=== PATIENT | female | born 1980 ===

== ENCOUNTER 2024-11-26 06:30 | Inpatient (IN) | payer OTHER, SELFPAY ==
[2024-11-26] VITALS (13 sets, daily range): BP systolic 106–153; BP diastolic 56–101; BMI 27.8
[2024-11-26 01:07] LABS: % Basophils 0.8 % (0-2); % Eosinophils 0.9 % (0-6); % Immature Granulocytes 1.7 % (0-0.5); % Lymphocytes 17.8 % (20.5-51.1); % Monocytes 8.7 % (1.7-9.3); % Neutrophils 70.1 % (42.2-75.2); Absolute Basophils 0.1 10^3/uL (0-0.2); Absolute Eosinophils 0.1 10^3/uL (0-0.7); Absolute Immature Granulocytes 0.2 10^3/uL (0-0.05); Absolute Lymphocytes 2.1 10^3/uL (1.2-3.4); Absolute Neutrophils 8.2 10^3/uL (1.4-6.5); Hematocrit 37.2 % (37.0-47.0); Hemoglobin 11.8 g/dL (12.0-16.0); Mean Corp Hgb Conc. 31.7 g/dL (33.0-37.0); Mean Corpuscular Hgb 23.8 pg (27.0-31.0); Nucleated Red Blood Cells % 0 %; Platelet Count 298 10^3/uL (130-400); Red Blood Cell Count 4.96 10^6/uL (4.20-5.40); Red Cell Dist. Width 14.6 % (11.5-14.5); White Blood Cell Count 11.7 10^3/uL (4.8-10.8)
[2024-11-26 01:15] LABS: ALT (SGPT) 17 U/L (0-35); AST (SGOT) 18 U/L (14-36); Albumin 4.1 g/dl (3.5-5.0); Alkaline Phosphatase 77 U/L (38-126); Blood Urea Nitrogen 16 mg/dl (7-17); Calcium 9.4 mg/dl (8.4-10.2); Carbon Dioxide 25 mmol/L (22-30); Chloride 107 mmol/L (98-107); Glucose 109 mg/dl (70-99); Lipase 517 U/L (23-300); Potassium 4.2 mmol/L (3.5-5.1); Sodium 141 mmol/L (135-145); Total Bilirubin 0.3 mg/dl (0.2-1.3); Total Protein 6.7 g/dl (6.3-8.2); eGFR > 60.00
--- NOTE | 2024-11-26 01:37 | ED.GENMED ---
History of Present Illness
General
Chief Complaint: Abdominal Pain
Source: patient
Exam Limitations: none
Time Seen by Provider: 11/26/24 01:18
History of Present Illness
History of Present Illness:
This is a 44 year old female that comes in with c/o upper abd pain. States that she had a little pain in the morning on Saturday and it was mild. States that tonight the pain when she laid down increased and she could not breath due to the pain.
States that the pain goes into her back. State that she has had nausea with a headache. Patient was at [facility] and they did an ECG and told her that this was normal and that she would have to wait. Patient states that they left and came
here. Denies any fever, chills, chest pain, vomiting, diarrhea, dizziness, urinary burning.
Past History
Past History
ED Past Medical History: Arrthythmia (Palpitations); Negative Asthma, HTN, Hypercholesterolemia or NIDDM
ED Past Surgical History: Gynecological (Tubal ligation)
Social History
Tobacco: Non-smoker
Alcohol: None
Drug: None
Personal:
Living: with family
Review of Systems
Review of Systems
All Other Systems: ROS reviewed and negative except as documented in HPI and ROS
Constitutional: Reports no symptoms; Denies fever or chills
EENT: Reports no symptoms
Respiratory: Reports trouble breathing (with pain only); Denies cough
Cardiac: Reports no symptoms; Denies chest pain
ABD/GI: Reports abdominal pain and nausea; Denies vomiting or diarrhea
: Reports no symptoms; Denies dysuria, frequency or urgency
Musculoskeletal: Reports no symptoms
Skin: Reports no symptoms
Neurological: Reports headache; Denies dizzy
Psychiatric: Reports no symptoms
Phy Exam
General Physical Exam
General Presentation: mild distress
General age: appears stated age
General Skin: warm and dry
General Habitus: normal
General Mental: alert
General Hydration: appears well hydrated
ENT Exam
ENT Exam: TM's normal, pharynx normal and neck supple
Eye Exam
Eye Exam: EOMI
Cardiovascular Exam
Cardiovascular Exam: regular rate/rhythm, no edema, no murmur and normal peripheral pulses
Pulmonary Exam
Pulmonary Exam: lungs clear, no respiratory distress, no rales, chest non tender, no crackles, no rhonchi, no wheezing and no cough
Gastrointestinal Exam
Gastrointestinal Exam: normal bowel sounds, soft, no organomegaly, no pulsatile mass, non distended and tender (epigastric and right upper abd tenderness with palpation)
Musculoskeletal Exam
Musculoskeletal Exam: full ROM and no edema
Skin Exam
Skin Exam: normal color, warm/dry, no rash and no petechia
Psychiatric Exam
Psychiatric Exam: normal mood/affect
Course
Orders/Labs/Results
Orders:
Orders
11/26/24 00:47
Complete Blood Count/With Diff Urgent
Comprehensive Metabolic Panel Urgent
Ferritin Urgent
Comment: ADD ON
HCG, Serum Qualitative Screen Urgent
Iron Urgent
Comment: ADD ON
Lipase Urgent
Total Iron Binding Urgent
Comment: ADD ON
11/26/24 01:36
CT Abd/pelvis W Iv Cont Urgent
Comment:
Reason For Exam: Upper abd pain
0.9% Sodium Chloride 1000 ml [Nss] 1,000 ml IV BOLUS
HYDROmorphone [Dilaudid] 1 mg IV NOW STA
Ondansetron Injectable [Zofran] 4 mg IV NOW STA
US Abdomen Limited Urgent
Comment:
Reason For Exam: Upper abd pain
11/26/24 01:40
Add On- LAB Urgent
Tests Added?: hcg qualitative
11/26/24 02:02
Urinalysis Reflex To Culture Urgent
Date Specimen was Collected: 11/26/24
Time Specimen was Collected: 01:56
Urine Microscopic Reflex Cult Urgent
Urine Culture Urgent
JOANIE Source: U
Specimen Description:
Date Specimen was Collected: 11/26/24
Time Specimen was Collected: 01:56
11/26/24 03:10
US Legs, Bilateral [US Periph Venous LOWER Ext Adryan] Urgent
Comment:
Reason For Exam: Possible PE
11/26/24 03:59
D-Dimer Urgent
Comment: ADD ON
PTT Urgent
Prothrombin Time Urgent
Troponin I Urgent
11/26/24 04:30
HYDROmorphone [Dilaudid] 0.5 mg IV NOW STA
11/26/24 04:31
Heparin 5,700 units IV NOW STA
Heparin Protocol- PTT Orders As Directed
PTT per Heparin protocol: -Obtain CBC and baseline PTT - if not already collected.
-Obtain PTT 6 hours from start of infusion. Then, every 6 hours until 2 consecutive
PTT's are therapeutic. Then, PTT Daily.
-With each rate change, obtain PTT every 6 hours until 2 consecutive PTT's are
therapeutic. Then, PTT Daily.
Notify MD As Directed
Notify physician if: PTT is greater than or equal to 200.
11/26/24 04:33
Admit/Transfer Patient As Directed
Co-Sign Provider:
Level of Care: Inpatient admission
Assign to:: Telemetry
Physician / Group: hospitalist
Diagnosis: Pulmonary embolism, pancreatitis
Reason for Telemetry: Other
Other Reason for Telemetry: pulmonary embolism
Date to Stop Telemetry: 11/28/24
Time to Stop Telemetry: 11:00
Reason for Hospitalization: pulmonary embolism
Expected length of stay greater than two midnights?: Yes
ELOS- Estimated Length of Stay in days: 2
I certify the patient meets the requirements for IP care: Yes
PRN Pain Medication Management As Directed
May give lesser potent ordered pain med per pt: Yes
preference::
Protocol:: Medication orders for pain may be administered in a
manner that supports deferring to patient preference
when the pt is:
- Requesting an ordered lesser potent pain medication.
Least to most potent pain medications are defined
as: acetaminophen < NSAID < tramadol < opioids
(morphine, oxycodone, hydromorphone).
- Requesting a lesser dose of the same medication IF
ORDERED.
- Requesting a less intrusive route of administration
if both routes are prescribed by the provider (PO <
IV).
11/26/24 04:34
Code Status As Directed
Resuscitation Status: Full Code
11/26/24 04:45
Heparin 02787 Units/250 ml 25,000 units in 250 ml IV PER PROTOCOL
Weight to be used for heparin protocol in kilograms (kg):: 71.2
Protocol:: DVT/PE
PTT Goal Range to be used:: PTT 73 to 111 seconds
Order type:: Initial
INITIAL Infusion Dose (UNITS/KG/hr) & then follow protocol:: 18 units/kg/hr
Infusion Dose in UNITS/hr & then follow protocol (UNITS/hr):: 1,300
INFUSION RATE in mL/hr & then follow protocol (mL/hr):: 13
For DVT/PE algorithm, re-bolus for low PTT?: Yes
PTT less than or equal to 64 seconds:: Re-bolus 80 units/kg (max 10,000units). Increase by 300 units/hr
(+ 3mL/hr)
PTT 64.1 to 72.9 seconds:: Re-bolus 40 units/kg (max 5,000 units). Increase by 100 units/hr
(+ 1mL/hr)
PTT 73 to 111 seconds:: Target Range. No change in rate.
PTT 111.1 to 130.9 seconds:: Decrease rate by 100 units/hr (- 1 mL/hr)
PTT 131 to 199.9 seconds:: HOLD for 1 hr. Then decrease by 200 units/hr (- 2mL/hr)
PTT greater than or equal to 200 seconds:: HOLD for 2 hrs & Notify Provider. Then decrease by 300 units/hr
(- 3mL/hr)
Lab follow-up:: Each change, PTT q6h until 2 consecutive are therapeutic. Then
PTT daily.
11/26/24 05:16
Heparin 5,700 units IV Q6HPRN PRN
11/26/24 05:17
Heparin 2,800 units IV Q6HPRN PRN
11/26/24 Breakfast
Clear Liquid
At Your Request: Full Participation
11/26/24 06:50
Acetaminophen [Tylenol] 650 mg PO Q4HPRN PRN
HYDROmorphone [Dilaudid] 0.5 mg IV Q4HPRN PRN
Lactated Ringers [Lr] 1,000 ml IV 125 mls/hr
Morphine Sulfate 2 mg IV Q4HPRN PRN
Polyethylene Glycol Powder [Miralax] 17 grams PO DAILY PRN
11/26/24 06:50
Echo 2D MMode Color/Doppler Routine
Reason for Study: pulmonary embolism
Consult Notification Routine
Specialty to Notify: Gastroenterology
Consult Notification Routine
Specialty to Notify: Hematology
GASTROINTESTINAL CONSULT Routine
Consulting Provider: Mercedes Jordan
Was physician already notified: No
Reason for consult: acute pancreatitis w/o common risks/findings
HEMATOLOGY CONSULT Routine
Consulting Provider: Jose Maria Ansari
Was physician already notified: No
Reason for consult: unprovoked PE
Activity As Directed
Activity Level: With Assistance
Bladder Scan As Directed
Follow Bladder Retention/Intermittent Cath Algorithm?: Yes
Frequency: Per Retention Algorithm
Comment: as per intermittent urinary catheter algorithm
Intake/ Output As Directed
Frequency: Per unit guidelines
Vital Signs As Directed
Frequency: Per unit guidelines
Pulse Ox/cont/shift [RESP] Routine
Quantity: 1
Special Instructions: check O2 Sat Q8 hours and at each change in oxygen liter flow and FiO2
11/26/24 08:00
Docusate Sodium [Colace] 100 mg PO BID
Pantoprazole [Protonix] 40 mg PO DAILY
11/26/24 11:42
PTT Urgent
11/27/24 06:00
Glycohemoglobin (HgbA1c) IN AM
Triglycerides IN AM
11/28/24 06:00
Complete Blood Count/No Diff Q2D
Comment: Notify MD if platelet count is <130,000 or decreases by 50% from baseline
11/28/24 11:00
DC Protocol for Telemetry ONCE
11/30/24 06:00
Complete Blood Count/No Diff Q2D
Comment: Notify MD if platelet count is <130,000 or decreases by 50% from baseline
12/02/24 06:00
Complete Blood Count/No Diff Q2D
Comment: Notify MD if platelet count is <130,000 or decreases by 50% from baseline
12/04/24 06:00
Complete Blood Count/No Diff Q2D
Comment: Notify MD if platelet count is <130,000 or decreases by 50% from baseline
12/06/24 06:00
Complete Blood Count/No Diff Q2D
Comment: Notify MD if platelet count is <130,000 or decreases by 50% from baseline
12/08/24 06:00
Complete Blood Count/No Diff Q2D
Comment: Notify MD if platelet count is <130,000 or decreases by 50% from baseline
12/10/24 06:00
Complete Blood Count/No Diff Q2D
Comment: Notify MD if platelet count is <130,000 or decreases by 50% from baseline
12/12/24 06:00
Complete Blood Count/No Diff Q2D
Comment: Notify if platelet count is <130,000 or decreases by 50% from baseline
Abnormal Lab Results
11/26/24 11/26/24 11/26/24
00:47 02:02 03:59
WBC 11.7 H 10^3/uL
(4.8-10.8)
Hgb 11.8 L g/dL
(12.0-16.0)
MCV 75.0 L fL
(81.0-99.0)
MCH 23.8 L pg
(27.0-31.0)
MCHC 31.7 L g/dL
(33.0-37.0)
RDW 14.6 H %
(11.5-14.5)
Abs Immat Gran (auto) 0.2 H 10^3/uL
(0-0.05)
Absolute Neuts (auto) 8.2 H 10^3/uL
(1.4-6.5)
Absolute Monos (auto) 1.0 H 10^3/uL
(0.1-0.6)
Immature Gran % 1.7 H %
(0-0.5)
Lymphocytes % 17.8 L %
(20.5-51.1)
D-Dimer 1.08 H ug/mlFEU
(0.00-0.50)
Glucose 109 H mg/dl
(70-99)
% Saturation 15 L %
(20-50)
Lipase 517 H U/L
(23-300)
Leukocyte Esterase Rfl Trace A
(Negative)
Urine Bacteria (Reflex) Moderate A
(Negative)
11/26/24 00:47
11/26/24 00:47
Leukocytosis, Hgb slightly low. Anemia, Glucose nonfasting. Lipase elevation (early pancreatitis), Urine negative for infection. HCG negative.
Vital Signs
Initial and Last Documented VS:
Initial Vital Signs
Pulse Resp BP Pulse Ox
112 18 153/101 97
11/26/24 00:20 11/26/24 00:20 11/26/24 00:20 11/26/24 00:20
Last Documented Vital Signs
Temp Pulse Resp BP Pulse Ox
98.4 F 103 20 125/83 96
11/26/24 23:05 11/26/24 23:05 11/26/24 23:05 11/26/24 23:05 11/26/24 23:05
MDM/Problems Addressed
Differential Diagnosis Includes:
Pancreatitis, gallbladder disease
MDM/Problems Addressed:
This is a 44 year old female that comes in with c/o upper abd pain. States that she has some discomfort on Saturday morning. Tonight the pain is worse and that she can't lay down as the pain increased. States that the pain maker her SOB.
Will check labs, Limited Ultrasound and get CT of abd/pelvis. Will give IV fluids and medicate for pain.
Back into see patient. Explained that her CT shows that she may have a right lower lobe Pulmonary embolism. Patient appears to only have on kidney on the left. Spoke with the Hospitalist and will be Ultrasound of the lower legs and he will base his
decision on a blood thinner according to this. Will admit.
Chronic conditions affecting care:
NA
Acute Exacerbation and/or Progression of Chronic Illness:
NA
*Radiology
Radiology exam reviewed: radiology read reviewed (CT night hawk- Possible embolus right lower lobe, Incompletely seen on last image slices. Please clinically correlate with clinical suspicious and consider CTA chest appropriate) and other (Bilateral
ultrasound negative for DVT)
*Pulse Oximetry
Patient hypoxic: no
*EKG
Interpreted by ED Provider?: NA
Rate: EKG- N/A
*Abrasive Mixer Interpretation
Rate: Abrasive Mixer- N/A
*Critical Care Note
Total Time (30-74mins, 75-104mins- exclusive of procedures): Not Applicable
ED Attending Note
-
Portions of this chart may have been created with voice recognition software.� Occasional wrong word or��sound alike� substitutions may have occurred due to the inherent limitations of voice recognition software.
Discharge Plan
Departure
Patient Disposition: Admit
Date of Disposition: 11/26/24
Time of Disposition: 03:28
Admit to: Telemetry
Presentation/result/management discussed w/ accepting MD/DO: Hospitalist
Patient with high blood pressure during this ER visit?: No
Condition: Good
Covid-19: Not Applicable
Discharge Problem:
Early pancreatitis, Possible right lower lobe PE
Interventions
Interventions:
*Risk Screen - Suicide Last Done: 11/26/24 00:20
*General Assessment Last Done: 11/26/24 01:51
*Neglect/Abuse Screening Last Done: 11/26/24 01:51
ED- Fall Risk Assessment Last Done: 11/26/24 09:26
*ED COVID-19 Vaccine History Last Done: 11/26/24 01:51
*Nursing Disposition Last Done: 11/26/24 14:05
NF-Rohkef-Fccjqvkucu Assessment Last Done: 11/26/24 09:26
Discharge Date and Time
Discharge Date/Time: 11/26/24 14:05
[2024-11-26] MEDS: DILAUDID 1 MG IV (01:57)
[2024-11-26] MEDS: NSS 1000 IV (01:57)
[2024-11-26] MEDS: ZOFRAN 4 MG IV (01:57)
[2024-11-26 02:14] LABS: HCG, Serum Qualitative Screen Negative
[2024-11-26 02:14] LABS: Urine Albumin Negative (Neg - Trace); Urine Bilirubin Negative (Negative); Urine Character Clear (Clear); Urine Color Yellow; Urine Glucose Negative (Negative); Urine Ketone Negative (Negative); Urine Leukocyte Trace (Negative); Urine Nitrite Negative (Negative); Urine Occult Blood Negative (Negative); Urine Specific Gravity 1.015 (<1.030); Urine Urobilinogen Negative (Neg - 1+)
[2024-11-26 02:32] LABS: Urine Bacteria Moderate (Negative); Urine Red Blood Cell 0-2 /HPF (0-2); Urine Squamous Cell 26-30 /LPF (Few); Urine White Cell 0-2 /HPF (0-5)
--- NOTE | 2024-11-26 04:11 | HPS.HSE ---
Family Physician
-
Family Physician: Shaun Johnson
Chief Complaint
-
Right-sided flank and back pain as well as epigastric pain.
History of Present Illness
This is a 44-year-old female with a past medical history of intermittent episodes of PVCs on as needed metoprolol presents to the emergency department with episode of abdominal pain that started about 2 days ago.
In particular the patient reported that she initially had pain that felt musculoskeletal on the right flank and subcostal area. She tolerated this for a while. However she awoke today with more severe pain that was radiating to the epigastric
region. She had mild nausea that she associates with mild migraine headache. She denies any vomiting. She denies having any diarrhea. She reported that when she is standing the pain feels more epigastric. When she is laying down the pain feels
flank and radiates to right neck and shoulder. Pain is worse with inspiration. She denies having any shortness of breath. She denies any cough. Patient denies any recent travels such as plane flight or a prolonged drive. She reported that she
did have a 2-hour drive to and from [place] recently. She denies any lower extremity swelling. She denies family history of clotting disorders. She does report a mother who reportedly passed from a cardiac episode in her 30s. Father with
history of lung cancer but was a smoker. Patient denies alcohol use. She denies any history of gallstones. Denies any urinary symptoms.
In the emergency department she was afebrile, blood pressure was 120/67 with a pulse of 88. She was at 98% on room air. CBC was unremarkable. Electrolytes BUN/creatinine were normal. LFTs were completely normal. Lipase was elevated at 517.
In the right upper quadrant ultrasound shows no sonographic evidence of cholelithiasis or acute cholecystitis. The common bile duct measures [address] of the abdomen pelvis with IV contrast showing possible pulmonary embolus in the right lower
lobe. There was a normal gallbladder and no other acute findings. Congenitally absent right kidney. Lower extremity Dopplers were negative for DVT.
Medical History
Past Medical History
Past Medical History: Reports Other (PVCs)
Past Surgical History: Reports Gynocological (tubal ligation)
Social History
Tobacco: Non-smoker
Alcohol: None
Drug: None
Personal:
Living: With Family
Employment: Employed
Family History
Family History: Not pertinent
Allergies / Home Medications
Allergies reflects when Allergies were last updated in [employer].
Home Medications with original date entered in [employer]
Allergy/Medication List:
Allergies
Allergy/AdvReac Type Severity Reaction Status Date / Time
No Known Allergies Allergy Unverified 11/26/24 00:19
Home Medications
albuterol sulfate 90 mcg/actuation aerosol inhaler 2 puff inhalation 6XD PRN sob 11/26/24
metoprolol succinate 25 mg tablet,extended release 24 hr 25 mg PO DAILY PRN heart rate 11/26/24
Review of Systems
-
Constitutional: Reports No Symptoms
EENT: Reports No Symptoms
Respiratory: Reports No Symptoms
Abdomen/GI: Reports Abdominal Pain
: Reports No Symptoms
Musculoskeletal: Reports No Symptoms
Skin: Reports No Symptoms
Neurological: Reports No Symptoms
Endocrine: Reports No Symptoms
Hematologic/Lymphatic: Reports No Symptoms
Psych: Reports No Symptoms
Physical Exam
Vital Signs
Vital Signs
Pulse Resp BP Pulse Ox
88 16 119/63 98
11/26/24 02:56 11/26/24 02:56 11/26/24 02:56 11/26/24 02:56
Physical Exam
General: Well Developed, Well Nourished, Conversant and Appears in Distress
HEENT: NormoCephalic, Anicteric, Moist mucous membranes and Atraumatic
Respiratory: Clear
Cardiac: S1/S2 and Regular Rhythm
Breast: Deferred by me
GI: Soft, Non Tender, Non Distended and Normal Bowel Sounds
Rectal: Deferred by Provider
Genito-urinary: Deferred by me
Musculoskeletal: No Clubbing, No Cyanosis and No Edema
Skin: Warm
Neuro: AO x 3 and Nonfocal/grossly intact
Hematologic/Lymphatic: No Lymphadenopathy
Psych: Calm
Laboratory Results
-
11/26/24 00:47
11/26/24 00:47
Laboratory Results
Total Bilirubin 0.3 mg/dl (0.2-1.3) 11/26/24 00:47
AST 18 U/L (14-36) 11/26/24 00:47
ALT 17 U/L (0-35) 11/26/24 00:47
Alkaline Phosphatase 77 U/L (38-126) 11/26/24 00:47
Lipase 517 U/L (23-300) H 11/26/24 00:47
Data Reviewed
-
CT Scan: Report Reviewed by me
Ultrasound: Report Reviewed by me
Lab Data: Labs Reviewed by me
Old Records: Reviewed
Impression/Plan
-
IMPRESSION:
Generally healthy 44-year-old who presents with right-sided pain and some epigastric pain that is worse with inspiration. Found to have incidental pancreatitis with elevated lipase. CT of the abdomen pelvis and right upper quadrant ultrasound was
negative for gallstones, acute cholecystitis or ductal dilation. The pancreas showed no acute abnormality. Incidental finding of absence of right kidney. There was also a finding of a possible right lower lobe pulmonary embolus. The lower
extremity ultrasound is negative.
PLAN:
Possible PE - Pleuritic chest pain and abdominal pain with incidental finding of PE on CT/AP. No DVT on u/s. HD stable. troponin pending. Likely non-massive pe but given recent contrast and single kidney cannot scan immediately.
- admit to telemetry
- follow troponin,
- IV fluids and obtain CT PE after IV fluids for JOVI PPX.
- for now will start heparin gtt pending repeat PE
- no provoking factors, no clear family hx. Has age appropriate cancer screening
- hematology consultation if CT PE confirms the PE
Pancreatitis - Epigastric pain c/w pancreatitis but the etiology is unclear, no stones, etoh, trauma or meds. Labs otherwise normal.
- clear liquid diet as tolerated
- pain control and antiemetics
- check triglycerides
- no obvious anatomic anomaly, ? sphincter of oddi
- gi consult
Code status - full code
[2024-11-26 04:37] LABS: INR 1.03
[2024-11-26 04:38] LABS: APTT 33.3 Sec (23.4-35.0)
[2024-11-26 05:02] LABS: Troponin I < 0.012 ng/ml
[2024-11-26] MEDS: DILAUDID 0.5 MG IV ×2 (05:15→19:27)
[2024-11-26] MEDS: HEPARIN 25000 UNITS/250 ML IV (05:20)
[2024-11-26] MEDS: HEPARIN 5700 UNITS IV (05:20)
--- NOTE | 2024-11-26 08:22 | CON.GI ---
Addendum entered and electronically signed by Mercedes Jordan MD 11/26/24 16:30:
I saw and examined the patient.
The Resident's note was reviewed and I agree with the note.
Comment: 44-year-old female with no significant past medical history presenting with acute epigastric/right upper quadrant sharp abdominal pain that woke her up from sleep, radiation to the right upper back and also to the right shoulder. No
previous similar episodes and no prior GI complaints. In the ER, mild leukocytosis, lipase slightly elevated at 517 with normal LFTs. Mild anemia with microcytic indices, as per patient this is chronic. Abdominal ultrasound did not show any
evidence of stones or sludge.CT scan of the abdomen and pelvis with IV contrast only showing questionable pulmonary embolus of the right lower lobe, no evidence of pancreatitis, gallbladder unremarkable as well. Moderate fecal material throughout
the colon.
On physical exam, tenderness in the right upper quadrant
-Epigastric/right upper quadrant abdominal pain radiating to the right upper back and right shoulder, clinically suggesting biliary source
No associated acid reflux symptoms, no regular NSAID use
No chronic abdominal pain either
Normal LFTs, mildly elevated lipase without any evidence of pancreatitis on CT scan.
Will add PPI for now. No indication for upper endoscopy at this time.
Might need surgical input.
-? PE on CT scan, getting further evaluation per medical team
At some point needs outpatient GI follow-up for colonoscopy as well.
Original Note:
Documented by User: Moo Green MD, Resident 11/26/24 13:54
Consultation
-
Date/Time Consultation Requested: 11/26/2024 06: 50
Date/Time Consultation Performed: 11/26/2024 09: 30
Requesting Provider: Romain Espinal MD
Performing Provider: Mercedes Jordan MD
Reason for Consultation: Acute pancreatitis w/o common risks/findings
Medical History
Chief Complaint / HPI
Chief Complaint: Epigastric abdominal pain
History of Present Illness:
44-year-old female with PMH of intermittent PVCs, who presented to ED on 11/26/2024 with epigastric pain radiating to the back. Patient reports that pain was initially on the RUQ that radiated to her right shoulder and right neck which she
tolerated until she started having an epigastric pain last night. Pain is rated 9/10, worse with deep breathing, and recumbent position. She did have nausea which she attributed to her migraine but no vomiting. She was evaluated at [facility] with an ECG and was told it was normal before presentation. 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 She does not remember being stung by an insect and does not
have any erythema on her skin. She denies any sick contacts, prolonged period of immobility, OCP use, history of gallstones, family history of blood clots, recent trauma, alcohol use, history of autoimmune disease, steroid use, history of
hypertriglyceridemia. The only medications she takes is metoprolol and albuterol inhaler. She does not take any NSAIDs regularly and does not take any OTC medications.
While in the ED, her vitals were stable with BP 120/67, pulse 88, per saturating at 98% on room air. Her LFTs were unremarkable, however she has an elevated lipase at 517. She is afebrile, her WBC counts is 11.7, Hb 11.8, MCV 75.0, platelets 298.
She denies chest pain, shortness of breath, diarrhea, constipation, or leg swelling.
Past Medical History
Past Medical History: Other (PVCs)
Past Surgical History: Gynecological (Tubal ligation)
Social History
Tobacco: Non-Smoker
Alcohol: None
Drug: None
Personal:
Living: With Family
Employment: Employed
Family History
Family History: Other (Father: Lung cancer (was a smoker), mother: Passed in her 30s with cardiac problem)
Allergies / Home Medications
Allergy/AdvReac Type Severity Reaction Status Date / Time
No Known Allergies Allergy Unverified 11/26/24 00:19
�Medication �Instructions �Recorded
albuterol sulfate 90 mcg/actuation 2 puff inhalation R Q6HPRN PRN sob 11/26/24
aerosol inhaler
metoprolol succinate 25 mg 25 mg PO DAILY PRN heart rate 11/26/24
tablet,extended release 24 hr
Review of Systems
-
All other systems: A 12 pt ROS was Negative except as stated above in HPI
Vital Signs
Pulse Resp BP Pulse Ox
95 12 122/61 98
11/26/24 05:24 11/26/24 05:24 11/26/24 05:24 11/26/24 02:56
Physical Exam
Exam
General: No Apparent Distress and Comfortable
Respiratory: Clear and Non Labored Respirations; Negative Wheezes or Rales
Cardiac: S1/S2 and Regular Rhythm; Negative Murmur, Peripheral Edema or Calf Tenderness
GI: Soft, Non Distended and Tender (Epigastric, RUQ)
Skin: Warm
Neuro: Awake and AO x 3
Psych: Calm
Results
WBC 11.7 10^3/uL (4.8-10.8) H 11/26/24 00:47
Hgb 11.8 g/dL (12.0-16.0) L 11/26/24 00:47
Hct 37.2 % (37.0-47.0) 11/26/24 00:47
MCV 75.0 fL (81.0-99.0) L 11/26/24 00:47
Plt Count 298 10^3/uL (130-400) 11/26/24 00:47
Absolute Neuts (auto) 8.2 10^3/uL (1.4-6.5) H 11/26/24 00:47
PT 14.0 Sec (11.4-14.6) 11/26/24 03:59
INR 1.03 11/26/24 03:59
APTT 33.3 Sec (23.4-35.0) 11/26/24 03:59
Sodium 141 mmol/L (135-145) 11/26/24 00:47
Potassium 4.2 mmol/L (3.5-5.1) 11/26/24 00:47
Chloride 107 mmol/L (98-107) 11/26/24 00:47
Carbon Dioxide 25 mmol/L (22-30) 11/26/24 00:47
BUN 16 mg/dl (7-17) 11/26/24 00:47
Creatinine 0.7 mg/dL (0.6-1.0) 11/26/24:47
Calcium 9.4 mg/dl (8.4-10.2) 11/26/24 00:47
Total Bilirubin 0.3 mg/dl (0.2-1.3) 11/26/24 00:47
AST 18 U/L (14-36) 11/26/24 00:47
ALT 17 U/L (0-35) 11/26/24 00:47
Alkaline Phosphatase 77 U/L (38-126) 11/26/24 00:47
Lipase 517 U/L (23-300) H 11/26/24 00:47
Assessment / Plan
-
Assessment: 44-year-old female with PMH of intermittent PVCs presenting to ED with epigastric pain radiating to the back with nausea but no vomiting.
Recommendations:
Presentation with epigastric pain
-Most likely due to choledocholithiasis with passed stone/sludge; acute pancreatitis and less likely�does not meet criteria.
-Other likely etiology include PUD. Will start on PPI.
-Lipase mildly elevated at 517 (less than 3x ULN), CT abdomen/pelvis with IV contrast negative for pancreatitis.
-Abdominal US without evidence of cholelithiasis or cholecystitis.
-Clear liquid diet. Advance as tolerated.
-Continue supportive care with antiemetics, pain control, IV fluid.
-Outpatient endoscopy. Patient is also due for colonoscopy.
-Will continue to follow.
Abdominal US 11/26/2024:
No acute pathology identified. Nonvisualization of pancreas and right kidney
CT abdomen/pelvis with IV contrast 11/26/2024:
No acute pathology of the abdomen or pelvis identified.
Questionable pulmonary embolus of the right lower lobe. If suspected clinically, CT examination for PE recommended.
Absent right kidney.
Moderate fecal material throughout the colon.
-
-
Thank you for consultation and allowing me to participate in the patient's care. Please call the customs and border protection officer GI physician during the after hours with any questions or concerns.

Documented by User: Mercedes Jordan MD 11/26/24 16:21
Assessment / Plan
-
Assessment: 44-year-old female with PMH of intermittent PVCs presenting to ED with epigastric pain radiating to the back with nausea but no vomiting.
Recommendations:
Presentation with epigastric pain
-Most likely due to cholelithiasis with passed stone/sludge; acute pancreatitis and less likely�does not meet criteria.
-Other less likely etiology include PUD. Will start on PPI.
-Lipase mildly elevated at 517 (less than 3x ULN), CT abdomen/pelvis with IV contrast negative for pancreatitis.
-Abdominal US without evidence of cholelithiasis or cholecystitis.
-Clear liquid diet. Advance as tolerated.
-Continue supportive care with antiemetics, pain control, IV fluid.
-Outpatient endoscopy. Patient is also due for colonoscopy.
-Will continue to follow.
Abdominal US 11/26/2024:
No acute pathology identified. Nonvisualization of pancreas and right kidney
CT abdomen/pelvis with IV contrast 11/26/2024:
No acute pathology of the abdomen or pelvis identified.
Questionable pulmonary embolus of the right lower lobe. If suspected clinically, CT examination for PE recommended.
Absent right kidney.
Moderate fecal material throughout the colon.
--- NOTE | 2024-11-26 09:16 | CON.ONC ---
Impression
Impression
possible pulmonary emboli, US LE negative
possible pancreatitis, elevated lipase
pyuria, Ucx pending
microcytic anemia
Plan
Plan
check ddimer
check iron studies
on heparin gtt
if ddimer positive, repeat CTA chest 48hours if renal function stable
Patient History
History of Present Illness
44yo F presented with abdominal pain. She reports right flank pain which became more severe and radiated to epigastric area, right neck and right shoulder. Her pain worsens with inspiration. WBC 11.7, Hgb 11.8, MCV 75, platelet 298, normal coags,
LFTs, and renal function. Her lipase is 517. UA with pyuria, ucx pending. Her right upper quadrant ultrasound shows no sonographic evidence of cholelithiasis or acute cholecystitis. The common bile duct measures [address] of the abdomen pelvis
with IV contrast showing possible pulmonary embolus in the right lower lobe. There was a normal gallbladder and no other acute findings. Congenitally absent right kidney. Lower extremity Dopplers were negative for DVT. Her Echo showed no RV
strain. She has been admitted for further evaluation of possible pancreatitis and pulmonary emboli. She has been admitted, started on pain medications, heparin gtt, IVF, and antiemetics.
She denies personal or family history of VTE. She denies prior miscarrages. She denies any use of hormones, GLP-1 analogs, COVID infections, surgery, trauma, air travel, prolonged immobility, or air travel. She reports heavy menstrual cycles but
otherwise denies overt bleeding. She has never had a colonoscopy but planning to have her routine scope this summer. She reports up to date on mammogram without any abnormalities.
No hypoxia or hypotension.
Past-Medical/Surgical History
PMH PVC
PSH tubal ligation
Social never smoker, denies ETOH or recreational drugs. 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
Family father lung cancer
Patient Medication
�Medication �Instructions �Recorded �Confirmed �Last Taken �Type
albuterol sulfate 90 mcg/actuation 2 puff inhalation R Q6HPRN PRN sob 11/26/24 11/26/24 Unknown History
aerosol inhaler
metoprolol succinate 25 mg 25 mg PO DAILY PRN heart rate 11/26/24 11/26/24 10/21/24 History
tablet,extended release 24 hr
Active Medications
Generic Name Dose Route Start Last Admin
Trade Name Freq PRN Reason Stop Dose Admin
Acetaminophen 650 mg 11/26/24 06:50
Acetaminophen 325 Mg Tablet PO 12/24/24 06:49
Q4HPRN PRN
mild pain/temp > 100.4 F
Docusate Sodium 100 mg 11/26/24 08:00
Docusate Sodium 100 Mg Capsule PO 12/24/24 07:59
BID LETICIA
Heparin Sodium 5,700 units 11/26/24 05:16
Heparin 80 Units/Kg Iv Rebolus IV 12/24/24 05:15
Q6HPRN PRN
PTT < OR = 64 seconds
Heparin Sodium 2,800 units 11/26/24 05:17
Heparin 40 Units/Kg Iv Rebolus IV 12/24/24 05:16
Q6HPRN PRN
PTT = 64.1 to 72.9 seconds
Hydromorphone HCl 0.5 mg 11/26/24 06:50
Hydromorphone 0.5 Mg/0.5 Ml Syringe IV 12/10/24 06:49
Q4HPRN PRN
severe pain
Heparin Sodium 25,000 units in 250 mls @ 0 mls/hr 11/26/24 04:45 11/26/24 05:20
Heparin 44053 Units/250 Ml IV 250 mls
PER PROTOCOL LETICIA Administration
Protocol
Per Protocol
Lactated Ringer's 1,000 mls @ 125 mls/hr 11/26/24 06:50
Lr IV
.Q8H LETICIA
Morphine Sulfate 2 mg 11/26/24 06:50
Morphine 2 Mg/Ml Syringe IV 12/10/24 06:49
Q4HPRN PRN
moderate pain
Pantoprazole Sodium 40 mg 11/26/24 08:00
Pantoprazole 40 Mg Delayed Release Tablet PO 12/24/24 07:59
DAILY LETICIA
Polyethylene Glycol 17 grams 11/26/24 06:50
Polyethylene Glycol Powder 17 Grams Packet PO 12/24/24 06:49
DAILY PRN
constipation
Sodium Chloride 0 flush 11/26/24 07:00
Sodium Chloride 0.9% (Flush) Syringe IV 12/24/24 06:59
PER PROTOCOL LETICIA
Review of Systems
-
ROS notable for HPI, otherwise negative
Physical Exam
-
General: Well Developed, Well Nourished, Conversant and Appears in Distress
HEENT: NormoCephalic, Anicteric, Moist mucous membranes and Atraumatic
Respiratory: Clear
Cardiac: S1/S2 and Regular Rhythm
GI: Soft, epigastric TTP
Musculoskeletal: No Clubbing, No Cyanosis and No Edema
Skin: Warm
Neuro: AO x 3 and Nonfocal/grossly intact
Hematologic/Lymphatic: No Lymphadenopathy
Psych: Calm
Labs
Lab Results
WBC 11.7 10^3/uL (4.8-10.8) H 11/26/24 00:47
RBC 4.96 10^6/uL (4.20-5.40) 11/26/24 00:47
Hgb 11.8 g/dL (12.0-16.0) L 11/26/24 00:47
Hct 37.2 % (37.0-47.0) 11/26/24 00:47
MCV 75.0 fL (81.0-99.0) L 11/26/24 00:47
MCH 23.8 pg (27.0-31.0) L 11/26/24:47
MCHC 31.7 g/dL (33.0-37.0) L 11/26/24:47
RDW 14.6 % (11.5-14.5) H 11/26/24 00:47
Plt Count 298 10^3/uL (130-400) 11/26/24:47
MPV 10.0 fL (7.4-10.4) 11/26/24:47
Abs Immat Gran (auto) 0.2 10^3/uL (0-0.05) H 11/26/24:47
Absolute Neuts (auto) 8.2 10^3/uL (1.4-6.5) H 11/26/24:47
Absolute Lymphs (auto) 2.1 10^3/uL (1.2-3.4) 11/26/24:47
Absolute Monos (auto) 1.0 10^3/uL (0.1-0.6) H 11/26/24:47
Absolute Eos (auto) 0.1 10^3/uL (0-0.7) 11/26/24:47
Absolute Basos (auto) 0.1 10^3/uL (0-0.2) 11/26/24:47
Immature Gran % 1.7 % (0-0.5) H 11/26/24:47
Neutrophils % 70.1 % (42.2-75.2) 11/26/24:47
Lymphocytes % 17.8 % (20.5-51.1) L 11/26/24:47
Monocytes % 8.7 % (1.7-9.3) 11/26/24:47
Eosinophils % 0.9 % (0-6) 11/26/24:47
Basophils % 0.8 % (0-2) 11/26/24:47
Creatinine 0.7 mg/dL (0.6-1.0) 11/26/24:47
Vital Signs
Vital Signs
Pulse Resp BP Pulse Ox
95 12 122/61 98
11/26/24 05:24 11/26/24 05:24 11/26/24 05:11/26/24 02:56
[2024-11-26] MEDS: COLACE 100 MG PO ×2 (09:57→20:20)
[2024-11-26] MEDS: PROTONIX 40 MG PO (09:57)
[2024-11-26] MEDS: LR 1000 IV ×2 (09:57→16:31)
[2024-11-26] MEDS: MORPHINE SULFATE 2 MG IV ×2 (09:58→15:22)
[2024-11-26 10:18] LABS: D-Dimer 1.08 ug/mlFEU (0.00-0.50)
[2024-11-26 10:54] LABS: Iron 52 ug/dl (37-170)
[2024-11-26 11:03] LABS: Percent Saturation 15 % (20-50); Total Iron Binding Capacity 327 ug/dl (265-497)
[2024-11-26 11:21] LABS: Ferritin 8.9 ng/ml (6.24-137)
[2024-11-26] MEDS: TYLENOL 650 MG PO (11:46)
--- NOTE | 2024-11-26 14:11 | EDRN ---
Patient taken to room 1143 by RN with Heparin drip infusing at 1100 units/HR.
--- NOTE | 2024-11-26 14:56 | W.PN.UPDATE ---
Update Note
Progress Note Update
Seen by Dr. Espinal
Admitted with abdominal pain and mild elevated lipase.
Patient still remains in abdominal pain and points to the right upper quadrant going to the right side of the abdomen and back. She is tender in the right upper quadrant. CT of the abdomen pelvis with IV contrast did not show any obvious
gallbladder pathology but would need GB pathology evaluation. Consult general surgery. Obtain ultrasound of the abdomen to look for gallbladder stones.
Discussed with GI today.
Heme input about PE noted -cw IV heparin.
--- NOTE | 2024-11-26 17:37 | PTCARENOTE ---
Pt continues to have RUQ abd pain radiating to back. Pain can be severe at times especially when lying flat. Pain controlled by IV morphine.
[2024-11-27] MEDS: LR 1000 IV ×2 (00:20→08:05)
[2024-11-27] MEDS: MORPHINE SULFATE 2 MG IV ×2 (00:23→16:26)
[2024-11-27 02:43] LABS: APTT 72.9 Sec (23.4-35.0)
[2024-11-27] MEDS: HEPARIN 25000 UNITS/250 ML IV (03:14)
[2024-11-27] MEDS: HEPARIN 2800 UNITS IV ×2 (03:18→23:25)
[2024-11-27 03:39] VITALS: BP 126/79
[2024-11-27 07:33] VITALS: BP 141/81
[2024-11-27] MEDS: PROTONIX 40 MG PO (08:04)
[2024-11-27] MEDS: COLACE 100 MG PO ×2 (08:05→22:02)
[2024-11-27] MEDS: DILAUDID 0.5 MG IV ×4 (08:08→22:09)
--- NOTE | 2024-11-27 08:25 | W.PN.GI.CBS2 ---
Today's Communication / Plan
-
Surgical eval pending- CCK-HIDA? Bowel regimen
Assessment / Plan
-
44-year-old female with no significant past medical history presenting with acute epigastric/right upper quadrant sharp abdominal pain that woke her up from sleep, radiation to the right upper back and also to the right shoulder. No previous
similar episodes and no prior GI complaints. In the ER, mild leukocytosis, lipase slightly elevated at 517 with normal LFTs. Mild anemia with microcytic indices, as per patient this is chronic. Abdominal ultrasound did not show any evidence of
stones or sludge. CT scan of the abdomen and pelvis with IV contrast only showing questionable pulmonary embolus of the right lower lobe, no evidence of pancreatitis, gallbladder unremarkable as well. Moderate fecal material throughout the colon.
-Epigastric/right upper quadrant abdominal pain radiating to the right upper back and right shoulder, clinically suggesting biliary source
No associated acid reflux symptoms, no regular NSAID use
No chronic abdominal pain either
Started on PPI without improvement
Normal LFTs, mildly elevated lipase without any evidence of pancreatitis on CT scan, technically does not meet criteria as lipase <3x ULN
c/w IVF
Can continue PPI for next 24-48 hours but then d/c if really no improvement
Surgery eval pending-- would favor CCK-HIDA but will await their consultation to see if they would prefer MRI/MRCP
Recommend bowel regimen given findings of large volume stool in colon, the radiation of her pain is now consistent with trapped gas/air in setting of large stool burden, however, her constipation could certainly be a contributing factor
No plans for inpatient endoscopy at this time, her pain not consistent with PUD or other lumenal pathology etc. Needs outpatient colonoscopy for CRC screening.
Subjective
Subjective
Date of Service: November 27, 2024
Patient seen in follow-up, continues to have significant RUQ abdominal pain, states it is mildly better compared to yesterday. She does not feel the PPI helped.
Objective
Data Reviewed
Laboratory Data:
Laboratory Results
PT 14.0 Sec (11.4-14.6) 11/26/24 03:59
INR 1.03 11/26/24 03:59
APTT 72.9 Sec (23.4-35.0) H 11/27/24 02:26
Total Bilirubin 0.3 mg/dl (0.2-1.3) 11/26/24 00:47
AST 18 U/L (14-36) 11/26/24 00:47
ALT 17 U/L (0-35) 11/26/24 00:47
Alkaline Phosphatase 77 U/L (38-126) 11/26/24 00:47
Lipase 517 U/L (23-300) H 11/26/24 00:47
Vital Signs and I&O:
Vital Signs
Temp Pulse Resp BP Pulse Ox
99.5 F 110 19 141/81 96
11/27/24 07:33 11/27/24 07:33 11/27/24 07:33 11/27/24 07:33 11/27/24 07:33
I&O
11/26/24 11/27/24 11/28/24
06:59 06:59 06:59
Intake Total 720 / 720
Balance 720 / 720
Physical Exam
Physical Exam
GI: Soft, Non Distended and Tender (+RUQ and epigastrium, voluntary guarding, no rebound)
[2024-11-27] MEDS: MIRALAX 17 GRAMS PO (08:52)
[2024-11-27 09:59] LABS: APTT 111.9 Sec (23.4-35.0)
--- NOTE | 2024-11-27 09:59 | CON.GS ---
Addendum entered and electronically signed by Elijah Boyd MD 11/27/24 10:49:
Patient seen and examined.
Patient is a 44 yo F with a PMH of PVCs and s/p tubal ligation who presents with RIGHT sided abdominal and chest discomfort. Pain described as sharp and worse with deep inspiration or lying flat. Pain is predominantly in the RUQ and mid back with
radiation to the RIGHT shoulder. Prior to onset of symptoms she reports doing well. She denies any trauma to the area. She denies any significant coughing or sneezing episodes. 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
using a significant amount of Lysol with inhalation at that time. She denies any association of her symptoms with oral intake. She denies any jaundice, pale stools, or tea colored urine. She denies any fevers or chills. No nausea or vomiting.
Gen: NAD
Resp: mild SOB with increased WOB, significant pain and SOB with positioning into the LEFT lateral decubitus position
Abd: soft, no specific tenderness in RUQ, negative De La Torre's sign, ND, non-peritoneal, pain reproduced with deep inspiration
Labs, CT scan imaging, and ultrasound reviewed.
Patient is a 44 yo F p/w RIGHT-sided pleuritic chest pain
Symptoms very unlikely to be of gallbladder in origin given the lack of association with oral intake, physical exam, and radiographic imaging demonstrating no evidence of gallbladder wall thickening or stones. Lipase elevation likely indicative of
underlying inflammatory process and less likely related to a hepatobiliary pancreatic process. Symptoms sound as though they are more likely indicative of a pulmonary issue. Recommend workup with a CT scan of the chest. All questions answered.
Please call with any questions or concerns.
-- No plans or indication for intervention on this patient's gallbladder
-- CT scan of the chest to further workup pulmonary pathology
-- Please call with any questions or concerns
Original Note:
Consultation
-
Date/Time Consultation Requested: 11/26/23 [id number]
Requesting Provider: Jordan
Reason for Consultation: Eval for GB pathology causing her abdo pain
Medical History
-
Chief Complaint: right sided pain
History of Present Illness:
Ms Johnson is a 44 yo female with a h/o PVC's on prn metoprolol and tubal ligation who presented with 2 day history of right sided pain. She describes the pain as sharp and worse when lying flat and with deep inspiration. The pain is predominantly in
the mid right back across the front of the ribs and into epigastric area when sitting up and when lying flat it goes into her right shoulder. Tenderness to the right flank with palpation with patient becoming short of breath while laying on her left
side. She denies nausea, vomiting, fevers or chills. Food does no exacerbate her symptoms. She denies post prandial discomfort. She denies dark urine or acholic stools. She is nonjaundiced. She denies fevers or chills. There is mild upper epigastric
tenderness.
Past Medical History
Past Medical History: Other (PVC's)
Past Surgical History: Gynecological (tubal ligation)
Social History
Tobacco: Non-Smoker
Alcohol: None
Living: With Family
Employment: Employed (mathematician)
Family History
Family History: Reviewed & Not Pertinent
Allergies / Home Medications
Allergy/AdvReac Type Severity Reaction Status Date / Time
No Known Allergies Allergy Unverified 11/26/24 00:19
�Medication �Instructions �Recorded �Confirmed �Type
albuterol sulfate 90 mcg/actuation 2 puff inhalation R Q6HPRN PRN sob 11/26/24 11/26/24 History
aerosol inhaler
metoprolol succinate 25 mg 25 mg PO DAILY PRN heart rate 11/26/24 11/26/24 History
tablet,extended release 24 hr
Review of Systems
-
History Source: Patient
All other systems: Negative unless noted
A 10 point review of systems was completed, and was negative except as per HPI.
Physical Exam
Vital Signs
Temp Pulse Resp BP Pulse Ox
99.5 F 110 19 141/81 96
11/27/24 07:33 11/27/24 07:33 11/27/24 07:33 11/27/24 07:33 11/27/24 07:33
11/26/24 11/27/24 11/28/24
06:59 06:59 06:59
Actual Weight 71.2 kg
Body Mass Index (BMI) 27.8
Lab Results
WBC 11.7 10^3/uL (4.8-10.8) H 11/26/24 00:47
Hgb 11.8 g/dL (12.0-16.0) L 11/26/24 00:47
Hct 37.2 % (37.0-47.0) 11/26/24 00:47
Plt Count 298 10^3/uL (130-400) 11/26/24 00:47
Abs Immat Gran (auto) 0.2 10^3/uL (0-0.05) H 11/26/24 00:47
Neutrophils % 70.1 % (42.2-75.2) 11/26/24 00:47
Physical Exam
General: Well Developed and Well Nourished
HEENT: Moist Mucous Membranes
Respiratory: Non Labored Respirations and Other (tender to right lower costal region. SOB when lying on left side.)
GI: Soft, Non Distended and Tender (very mild to epigastric area)
Skin: Warm and Dry
Neuro: Awake and Alert
Psych: Calm
Data Reviewed
-
CT Scan: Image Personally Visualized and interpreted, Report Reviewed by me, Discussed with Physician, Discussed with Nurse and Discussed with Patient
Ultrasound: Image Personally Visualized and interpreted, Report Reviewed by me, Discussed with Physician, Discussed with Nurse and Discussed with Patient
Labs: Labs Reviewed by me, Discussed with Physician, Discussed with Nurse and Discussed with Family
Assessment / Plan
-
Ms Johnson is a 44 yo female with a h/o PVC's on prn metoprolol and tubal ligation who presented with 2 day history of right sided pain. She describes the pain as sharp and worsens acutely when lying flat and with deep inspiration. The pain is
predominantly in the mid right back across the front of the ribs and into epigastric area when sitting up and when lying flat it goes into her right shoulder. Symptoms are positional and not exacerbated by food. She denies n/v. The abdomen is not
tender although but there is some discomfort over the ribs. US imaging without gallstones present, no acute gallbladder pathology. CT scan of abd/pelvis without acute abdominal pathology, solitary kidney. ?PE in the right lower lobe with mildly
elevated d-dimer. Normal LFT's. Mildly elevated lipase. Mild leukocytosis. Afebrile.
She has been on heparin gtt empirically for ?PE. Awaiting CTA of the chest.
Doubt intraabdominal source of her pain. Would continue pulmonary work up.
Dietary advancements as per GI/primary team
No surgical intervention at this time
[2024-11-27 11:16] LABS: Hematocrit 36.1 % (37.0-47.0); Hemoglobin 11.7 g/dL (12.0-16.0); Mean Corp Hgb Conc. 32.4 g/dL (33.0-37.0); Mean Corpuscular Hgb 23.8 pg (27.0-31.0); Mean Corpuscular Volume 73.5 fL (81.0-99.0); Mean Platelet Volume 9.8 fL (7.4-10.4); Platelet Count 277 10^3/uL (130-400); Red Blood Cell Count 4.91 10^6/uL (4.20-5.40); Red Cell Dist. Width 14.3 % (11.5-14.5); White Blood Cell Count 12.1 10^3/uL (4.8-10.8)
[2024-11-27 11:20] VITALS: BP 151/83
[2024-11-27 12:15] LABS: ALT (SGPT) 14 U/L (0-35); AST (SGOT) 19 U/L (14-36); Albumin 4.1 g/dl (3.5-5.0); Alkaline Phosphatase 84 U/L (38-126); Blood Urea Nitrogen 7 mg/dl (7-17); Calcium 9.2 mg/dl (8.4-10.2); Carbon Dioxide 23 mmol/L (22-30); Chloride 101 mmol/L (98-107); Estimated Creatinine Clearance 112 ml/min; Glucose 91 mg/dl (70-99); Lipase 135 U/L (23-300); Potassium 3.8 mmol/L (3.5-5.1); Sodium 138 mmol/L (135-145); Total Bilirubin 1.1 mg/dl (0.2-1.3); Total Protein 6.9 g/dl (6.3-8.2); Triglycerides 125 mg/dl (10-149); eGFR > 60.00
[2024-11-27 12:35] LABS: Glycohemoglobin (HgbA1c) 5.7 % (4.0-5.6)
[2024-11-27 15:16] VITALS: BP 128/79
--- NOTE | 2024-11-27 15:25 | CM ---
Patient seen bedside with spouse.
IA completed.
patient lives with spouse and children in 2 story home.
Patient independent prior to admission without assistive devices.
Patient works and drives.
Spouse will transport home.
No hx VN or snf.
PCP: [facility]
Pharmacy [facility]
TC to [facility] cost, per pharmacist- cost would be $9.50.
Eliquis coupons provided to patient.
Plan: home no needs anticipated
Patient aware of CM availability should needs arise.
--- NOTE | 2024-11-27 16:03 | W.PN.HOSP.TC ---
Today's Communication/Plan
-
see above
Assessment / Plan
Assessment / Plan
Acute right upper abdominal/lower chest wall pain. A lot of pleuritic component. There was a question about the PE based on the CT of the abdomen pelvis. Today dedicated chest PE study is positive for PE within the right lower lobe. Small right
pleural effusion. Patchy parenchymal opacity in the right lower lobe which could represent atelectasis and the changes of pulmonary infarction noted. No evidence of right heart strain on CT.
Unprovoked PE.
Negative DVT and ultrasound.
No family history.
Suspect his symptomatology is more supradiaphragmatic than infradiaphragmatic pathology. So far Abdo pelvis evaluation is negative for acute pathology. Appreciate GI and surgery input.
Continue with IV heparin. Check for Eliquis coverage cost.
Start on oral diet.
Anticipated Discharge: Within 24 hours
Subjective/Interval History
-
Date of Service: November 27, 2024
Complains of pleuritic right-sided lower thorax pain, right-sided lateral lower thorax pain and sometimes in the right side lower back. She feels short of breath when she has this pleuritic chest pain. No nausea vomiting. No diarrhea. No fever
chills.
Denies any recent long journeys of live jaundice. Denies prior history of DVT or PE. No family history of DVT or PE.
Objective Data
-
Labs:
Laboratory Results
11/27/24 11/27/24 11/27/24
09:38 11:03 16:23
WBC 12.1 H
Hgb 11.7 L
Hct 36.1 L
Plt Count 277
APTT 111.9 H Pending
Sodium 138
Potassium 3.8
Chloride 101
Carbon Dioxide 23
BUN 7
Creatinine 0.6
Glucose 91
Calcium 9.2
Total Bilirubin 1.1
AST 19
ALT 14
Alkaline Phosphatase 84
Vital Signs:
Vital Signs
Temp Pulse Resp BP Pulse Ox
99.9 F 95 18 128/79 94
11/27/24 15:16 11/27/24 15:16 11/27/24 15:16 11/27/24 15:16 11/27/24 15:16
I&O
11/26/24 11/27/24 11/28/24
06:59 06:59 06:59
Intake Total 720 / 720 351 / 351
Balance 720 / 720 351 / 351
Review of Systems
-
Constitutional: Denies Fever
EENT: Denies Sore Throat
Respiratory: Denies Cough or Trouble Breathing
Cardiac: Reports Chest Pain
Abdomen/GI: Denies Nausea or Vomiting
Neuro: Denies Dizzy
Physical Exam
-
General: No Apparent Distress
HEENT: Moist Mucous Membranes
Respiratory: Clear to Auscultation
Cardiac: Regular Rhythm and S1/S2
GI: Soft, Nontender, Nondistended and Normal Bowel Sounds
Neuro: AO x 3
Data Reviewed
-
CT Scan: Report Reviewed by me (PE study)
Labs: Labs Reviewed by me
--- NOTE | 2024-11-27 16:24 | W.PN.UPDATE ---
Update Note
Progress Note Update
Dedicated Chest CT performed today confirmed acute PE. Given location and quality of pain, etiology of pain is felt to be 2/2 clot, rather than GI pathology, given negative workup thus far.
GI will sign off, please call with questions.
[2024-11-27 16:55] LABS: APTT 86.2 Sec (23.4-35.0)
[2024-11-27 19:41] VITALS: BP 131/67
[2024-11-27] MEDS: FLUSH (NSS) 2 FLUSH IV (22:10)
[2024-11-27 22:45] LABS: APTT 69.1 Sec (23.4-35.0)
[2024-11-27 23:21] VITALS: BP 106/64
[2024-11-28] MEDS: HEPARIN 25000 UNITS/250 ML IV (01:16)
[2024-11-28] MEDS: DILAUDID 0.5 MG IV (03:10)
[2024-11-28] MEDS: FLUSH (NSS) 2 FLUSH IV (03:11)
[2024-11-28 03:53] VITALS: BP 125/72
[2024-11-28 06:06] LABS: Hematocrit 35.4 % (37.0-47.0); Hemoglobin 11.4 g/dL (12.0-16.0); Mean Corp Hgb Conc. 32.2 g/dL (33.0-37.0); Mean Corpuscular Hgb 23.9 pg (27.0-31.0); Mean Corpuscular Volume 74.2 fL (81.0-99.0); Mean Platelet Volume 9.4 fL (7.4-10.4); Platelet Count 284 10^3/uL (130-400); Red Blood Cell Count 4.77 10^6/uL (4.20-5.40); Red Cell Dist. Width 14.1 % (11.5-14.5); White Blood Cell Count 10.4 10^3/uL (4.8-10.8)
[2024-11-28 06:21] LABS: APTT 143.7 Sec (23.4-35.0)
[2024-11-28 07:00] VITALS: BP 108/69
--- NOTE | 2024-11-28 08:11 | W.PN.ONC2 ---
Today's Communication / Plan
-
replete iron. If unable to tolerate ferrous sulfate 325mg PO QOD then would offer parenteral iron in my office
Plans for OP f/u with GI
DOAC at discharge
OP follow up with hematology in 12 weeks will be arranged upon discharge
Hematology will sign off, please reach out with any questions or concerns.
Impression
Impression
RLL pulmonary emboli, US LE negative
UA pyuria, cultures suggests contamination, no symptoms UTI
Iron deficient anemia, heavy menses. No prior colonoscopy
Plan
Plan
on heparin gtt, recommend DOAC at discharge. 3-6 months therapeutic then would consider ppx thereafter due to unprovoked nature of this VTE event.
Subjective/Objective
Subjective
no new complaints
Vital Signs:
Vital Signs
Temp Pulse Resp BP Pulse Ox
98.4 F 106 18 125/72 95
11/28/24 03:53 11/28/24 03:53 11/28/24 03:53 11/28/24 03:53 11/28/24 03:53
Lab Results:
Laboratory Data
WBC 10.4 10^3/uL (4.8-10.8) 11/28/24 05:50
Hgb 11.4 g/dL (12.0-16.0) L 11/28/24 05:50
Plt Count 284 10^3/uL (130-400) 11/28/24 05:50
PT 14.0 Sec (11.4-14.6) 11/26/24 03:59
INR 1.03 11/26/24 03:59
APTT Cancelled 11/28/24 08:07
eGFR > 60.00 11/27/24 11:03
Physical Exam
General: Well Developed, Well Nourished, Conversant and Appears in Distress
HEENT: NormoCephalic, Anicteric, Moist mucous membranes and Atraumatic
Respiratory: Clear
Cardiac: S1/S2 and Regular Rhythm
GI: Soft, epigastric TTP
Musculoskeletal: No Clubbing, No Cyanosis and No Edema
Skin: Warm
Neuro: AO x 3 and Nonfocal/grossly intact
Hematologic/Lymphatic: No Lymphadenopathy
Psych: Calm
[2024-11-28] MEDS: TYLENOL 650 MG PO (09:58)
[2024-11-28] MEDS: PROTONIX 40 MG PO (09:59)
[2024-11-28] MEDS: COLACE 100 MG PO (10:00)
[2024-11-28] MEDS: MIRALAX 17 GRAMS PO (10:00)
[2024-11-28 11:00] VITALS: BP 112/57
--- NOTE | 2024-11-28 11:40 | W.PN.HOSP.TC ---
Today's Communication/Plan
-
DC planning
Assessment / Plan
Assessment / Plan
Acute right upper abdominal/lower chest wall pain. A lot of pleuritic component. There was a question about the PE based on the CT of the abdomen pelvis. Dedicated chest PE study is positive for PE within the right lower lobe. Small right
pleural effusion. Patchy parenchymal opacity in the right lower lobe which could represent atelectasis and the changes of pulmonary infarction noted. No evidence of right heart strain on CT.
Unprovoked PE.
Negative DVT and ultrasound.
No family history.
Patient states she is up-to-date with screening regarding Pap smear and mammogram. She says she has scheduled screening colonoscopy as she turned 44 this year.
Suspect his symptomatology is more supradiaphragmatic than infradiaphragmatic pathology. So far Abdo pelvis evaluation is negative for acute pathology. Appreciate GI and surgery input.
Continue with IV heparin. Switch to Eliquis this evening and if not much of pain symptom will dc home.
Not hypoxic
Mild anemia with microcytosis and mild PETEY
Patient denies any blood in the stool.
Patient complains of menorrhagia. Ongoing for many cycles. 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 Denies any blood in the stools. She had plans to schedule a screening colonoscopy as she turned 44
CW Iron oral
DC home later today if pain symptom is controlled.
Discussed with the patient about unprovoked nature of the PE and the treatments and follow-up.
Total time of discharge 32 minutes
Anticipated Discharge: Today
Subjective/Interval History
-
Date of Service: November 28, 2024
Feeling improved with chest pain. Not much at rest now. Still pleuritic chest pain present. Last dose of IV pain medication early hours of this morning.
Denies shortness of breath at rest. No hypoxia.
Objective Data
-
Labs:
Laboratory Results
11/28/24 11/28/2425
05:50 08:07 14:00
WBC 10.4
Hgb 11.4 L
Hct 35.4 L
Plt Count 284
APTT 143.7 H Cancelled Pending
Vital Signs:
Vital Signs
Temp Pulse Resp BP Pulse Ox
98.4 F 106 18 125/72 95
11/28/24 03:53 11/28/24 03:53 11/28/24 03:53 11/28/24 03:53 11/28/24 03:53
I&O
11/27/24 11/28/24 11/29/24
06:59 06:59 06:59
Intake Total 720 / 720 1686.2 / 1686.2
Balance 720 / 720 1686.2 / 1686.2
Review of Systems
-
Constitutional: Denies Fever or Chills
Abdomen/GI: Denies Abdominal Pain, Nausea, Vomiting or Bloody Stools (per pt)
Neuro: Denies Dizzy
Physical Exam
-
General: Comfortable
Respiratory: Non Labored Respirations; Negative Wheezes, Crackles or Accessory Resp Muscle Use
Cardiac: Regular Rhythm, S1/S2 and Tachycardic
GI: Soft
Neuro: AO x 3
Psych: Calm
Data Reviewed
-
CT Scan: Report Reviewed by me (CT chest PE study)
Labs: Labs Reviewed by me
[2024-11-28 14:19] LABS: APTT 61.8 Sec (23.4-35.0)
[2024-11-28 15:00] VITALS: BP 132/76
[2024-11-28] MEDS: HEPARIN 2800 UNITS IV (15:03)
[2024-11-28] MEDS: ELIQUIS 10 MG PO (17:35)
--- NOTE | 2024-11-28 17:43 | W.DCSUMMARY ---
Discharge Summary
Discharge Data
Date of Admission: 11/26/24
Date of Discharge: 11/28/24
-
Pending Results: No
Hospital Course
Primary diagnosis:
Unprovoked pulmonary embolism
Mild anemia with microcytosis and mild iron deficiency
Hospital course:
Patient presented with acute right upper abdominal/lower chest wall plain and she a lot of pleuritic component. Initially was evaluated for any abdominal pathology and the CT imaging did not suggest anything. CT of the abdomen pelvis without
contrast raise the concern about possible PE in the right lower lobe pulmonary artery and a dedicated CT chest did confirmed PE in the right lower lobe pulmonary artery branch to the lateral and posterior segments, just inferior to the takeoff of
the anterior and medial segmental branches. This embolus fills the lumen of this branch and extends into the distal lateral and posterior segmental and subsegmental branches more inferiorly.Small right pleural effusion. Patchy parenchymal opacity
within the right lower lobe, which could represent atelectasis and/or changes of pulmonary infarction.With the intensity of the pain and the use of pain medication the clinical concern was pulmonary infarction.
Ultrasound of the legs was negative for DVT. No obvious risk factors. It was an unprovoked PE. Was seen by hematology. Initially was started on IV heparin. Echo showed no evidence of right ventricular strain. After 2 days of IV heparin she was
switched to oral Eliquis once her pain dissipated. She was advised to follow-up with hematology as an outpatient.
She says she was up-to-date with screening regarding Pap smear and mammogram which I could not confirm. She says she is also planning on to get screening colonoscopy as she is 44 years old now.
She had mild anemia with hemoglobin around 11.4 with mild microcytosis 74.2. Percent saturation was 15% otherwise iron studies was within the normal limit. Suggest mild iron deficiency may be. She has history of menorrhagia has seen ETL MANAGER in the
past. She was advised to take an iron supplementation and follow H&H and schedule outpatient screening colonoscopy as she planned.
Consultants on board:
Hematology-Jose Maria Salguero
Discharge Plan
-
Patient Disposition: Home (Routine Discharge)
Discharge Diagnosis/Procedures: Unprovoked right lower lobe PE
Diet: Regular
Activity: As tolerated
Driving Restrictions: As prior to admission
Bathing Restrictions: None
Blood Work: CBC in 2 weeks
Referrals:
Shaun Johnson MD [Family Provider] - in less than 1 week
Valeria Obrien MD [Active] - (In 3 months. Call to make an appointment)
Prescriptions:
New
Eliquis 5 mg tablet
5 mg PO BID Qty: 70 0RF
Rx Instructions:
10mg BID for 7 days and 5mg BID afterwards
acetaminophen [Tylenol Extra Strength] 500 mg tablet
500 mg PO Q6H PRN (Reason: Pain) Qty: 1 0RF
tramadol 50 mg tablet
50 mg PO Q6H PRN (Reason: moderate pain) Qty: 20 0RF
Continued
metoprolol succinate 25 mg Tablet Extended Release 24 Hr
25 mg PO DAILY PRN (Reason: heart rate )
albuterol sulfate 90 mcg/actuation Hfa Aerosol Inhaler
2 puff INHALATION R Q6HPRN PRN (Reason: sob)
Discharge Orders:
Discharge Patient (As Directed); Ordered 11/28/24
Ordered By: Brenden Ortega
Discharge Date and Time
Print Language: MAORI
== END 2024-11-28 18:10 | disposition home or self-care (01) | DRG 176 ==
LOC: 1 ACUTE 06:30
PROVIDERS: Clinical Nurse Specialist Family Health; ADMITTING PHYSICIAN Internal Medicine; ATTENDING PHYSICIAN Internal Medicine; CONSULT PHYSICIAN Internal Medicine Gastroenterology; EMERGENCY PHYSICIAN Emergency Medicine; FAMILY PHYSICIAN Family Medicine; OTHER PHYSICIAN Nurse Practitioner Acute Care; OTHER PHYSICIAN Surgery
DX: I26.99 Other pulmonary embolism without acute cor pulmonale (principal); D50.9 Iron deficiency anemia, unspecified; N92.0 Excessive and frequent menstruation with regular cycle; G43.909 Migraine, unspecified, not intractable, without status migrainosus; Z80.1 Family history of malignant neoplasm of trachea, bronchus and lung; K80.50 Calculus of bile duct without cholangitis or cholecystitis without obstruction; Z79.899 Other long term (current) drug therapy
CPT/HCPCS: 71275; 74177; 76705; 80053; 81003; 81015; 82728; 83036; 83540; 83550; 83690; 84478; 84484; 84703; 85025; 85027; 85379; 85610; 85730; 87086; 93306; 93970; 96361; 96374; 96375; 99285; Q9967